=== PATIENT | male | born 1980 | race Hispanic/Latino ===

== ENCOUNTER 2021-02-04 18:50 | Emergency (ER) | payer SELFPAY ==
[2021-02-05 16:32] LABS: SARS-CoV-2 PCR by NAA DETECTED (NotDetected)
== END 2021-02-04 21:51 | disposition home or self-care (01) ==
LOC: ERS 18:50
DX: U07.1 COVID-19 (principal)
CPT/HCPCS: 71045; 99283; U0003; U0005